=== PATIENT | male | born 1960 | race Caucasian/White ===

== ENCOUNTER 2017-11-13 10:10 | Day surgery (SDC) | payer OTHER ==
[~2017-11-13] VITALS: Ht 180.3 cm; Wt 96.9 kg
[~2017-11-13 10:10] MED LIST: ALLO300 PO; BENA40TA PO; PRED20 PO
[2017-11-13] MEDS ORDERED: IOHEXOL 350 MG/ML 50 ML BTL (for Cath Lab) OTHER ONE (10:11)
[2017-11-13 10:38] VITALS: BP 175/115; PULSE 88; RESP 20; TEMP 98.2; O2SAT 97
[2017-11-13] MEDS ORDERED: PLAV75TA29 PO (10:42)
[2017-11-13] MEDS ORDERED: METO25TA3 PO (10:42)
[2017-11-13] MEDS ORDERED: ATOR40TA16 PO (10:42)
[2017-11-13] MEDS ORDERED: VITA250T3 PO (10:42)
[2017-11-13] MEDS ORDERED: BENA40TA PO (10:42)
[2017-11-13] MEDS ORDERED: ALLO300T2 PO (10:42)
[2017-11-13] MEDS ORDERED: NITR1SUB3 SL (10:42)
[2017-11-13] MEDS ORDERED: ECASA81 PO (10:42)
[2017-11-13] MEDS ORDERED: SODIUM CHLOR 0.9% 1000 ML INJ 1,000 ML IV SCH (11:15)
[2017-11-13] MEDS ORDERED: HEPARIN-NS/PF FLUSH BAG 1,000 ML IV FLUSH ONE (12:11)
[2017-11-13] MEDS ORDERED: NITROGLYCERIN INJ 5 ML ONE (12:12)
[2017-11-13] MEDS ORDERED: HEPARIN SODIUM - IV 10,000 UNITS/10 ML VIAL ONE (12:12)
[2017-11-13] MEDS ORDERED: MIDAZOLAM HCL 2 MG/2 ML VIAL ONE ×2 (12:12→12:39)
[2017-11-13] MEDS ORDERED: RANO500 PO (12:55)
[2017-11-13] MEDS ORDERED: BACITRACIN OINT 0.9 GM PKT TOP ONE (13:00)
[2017-11-13] MEDS ORDERED: MISC INFORMATION XX ONE (13:00)
[2017-11-13] MEDS ORDERED: oxyCODONE/ACETAMINOPHEN 5 MG/325 MG TAB PO PRN ×2 (13:00)
--- NOTE | 2017-11-13 13:07 | CATHPROC ---
[employer] HIS Report Study Information Study Number Admission Scheduled Start Study Start [id number] Nov 13 2017 10:10AM 11/13/2017 Nov 13 2017 12:10PM [place] [facility] Cardiac Catheterization Admit Source Facility Department Other [facility] - Forestry Foreman Physician and Clinical Staff Initial Magnus Reyna Technical Support 1 Software EngineerFlorence Motley,Jesus Douglass,EMMANUEL Other Lupe Euceda,RT(R) TECH2 Recorder Soila Ornelas RCIS TECH2 Scrub Elyssa Cross,RT(R) Procedures Performed Procedure Location (Site) Vessel Name Coronary Angiograms LCA Left Coronary Coronary Angiograms RCA Right Coronary L Heart Cath Equipment Time Filling Station Equipment Mechanic Description Size Mfg Part Number Used/Scraped TRANSDUCER, TRUWAVE [id number] 12:13 [employer] CANALES * Used W/STOCKCOCK *[id number] *[id number] 12:13 [employer] PACK, CCL CUSTOM * Used *[id number] 12:13 [employer] SUPPORT, ARTERIAL ADULT [id number] *[id number] Used [id number] 12:13 [employer] PACER PEN, SKIN DUAL W/ RULER * Used *[id number] 12:33 [employer] JR 5.0 DXTERITY CATHETER fr 5 [id number] Used BAND, RADIAL COMPRESSION TR [id number] 12:54 [employer] 24CM Used SHORT 24 *[id number] SHEATH, FR6 RADIAL PRELUDE 12:13 [employer] FR 6 [id number] Used EASE 11CM [id number] 12:13 [employer] WIRE, EXCHANGE 260CM 3MMJ 260CM Used *[id number] 12:13 [employer] OMNIPAQUE, 350 MG, 150ML 150ML [id number] Used [id number] 12:13 [place] BLANKET,WARM AIR CCL * Used *[id number] Equipment Model, Serial, Lot Number and Expiration Data Description Model Number Serial Number Lot Number Expiration Date JR 5.0 DXTERITY CATHETER [id number] 01-25-2020 History: Current Medications Medication Dosage/Unit Route Frequency Last Date/Time Taken Allopurinol ASA Imdur Statins (any) NTG SL LOPRESSOR PLAVIX History: Allergies Allergy Reaction No Known Allergies History: Risk Factors Family History of Hypertension Dyslipidemia Previous CO Previous Heart Failure Premature CAD Yes Yes Yes No No Prior Valve Prior PCI Prior PCIDate Prior CABG Surgery No Yes 05/16/2017 No Cerebrovascular Peripheral Artery Chronic Lung On Dialysis Diabetes Disease Disease Disease No No No No No History: Stress Tests Stress or Imaging Studies Performed Yes Standard Exercise Stress Test No Stress Echo No Stress Test SPECT Stress Test SPECT Result Stress Test SPECT Ischemia Risk/Extent Yes Positive Intermediate Stress Test CMR No Cardiac CTA Coronary Calcium Score No No History: Other Current Smoker Method Packs a Day Years Used Pack Years Yes Cigarettes 08 16 25 Labs Hgb (g/dl) Hct (%) WBC (l/cumm) Platelets (thousands) 11.60-17.00 35.00-51.00 4.00-11.00 150.00-450.00 15.0 46 4.9 192 Glucose (mg/dl) BUN (mg/dl) Creatinine (mg/dl) BUN:Creatinine (1:x) 74.00-106.00 7.00-18.00 0.50-1.30 10.00-20.00 82 17 0.8 21.3 Na (meq/l) K (meq/l) 136.00-145.00 3.50-5.10 139 4.4 Medication Medication Total Dose (Bolus/Oral) Medication Total Dosage/Unit 1% XYLOCAINE 5 mL FENTANYL 50 mcg HEPARIN 5000 units OXYGEN 2 l/min RADIAL COCKTAIL 2 mL (Bolus) VERSED 3.5 mg Medications (Bolus/Oral) Medication Time Given Dosage/Unit Administered By Reason OXYGEN 11/13/2017 12:08:53 PM 2 l/min Florence Cantu 2 l/min OXYGEN given in lab by Florence Cantu RN via Nasal. VERSED 11/13/2017 12:20:17 PM 1 mg Mrache, Florence 1 mg VERSED given in lab by Florence Cantu RN in Left Antecubital via Peripheral IV. Ordered by Magnus Briggs. VERSED 11/13/2017 12:32:55 PM 1 mg Mrache, Florence 1 mg VERSED given in lab by Florence Cantu RN in Left Antecubital via Peripheral IV. Ordered by Magnus Briggs. VERSED 11/13/2017 12:34:30 PM 1 mg Mrache, Florence 1 mg VERSED given in lab by Florence Cantu RN in Left Antecubital via Peripheral IV. Ordered by Magnus Briggs. FENTANYL 11/13/2017 12:36:54 PM 25 mcg Florence Cantu 25 mcg FENTANYL given in lab by Florence Cantu RN in Left Antecubital via Peripheral IV. Ordered Magnus Zimmerman. FENTANYL 11/13/2017 12:39:00 PM 25 mcg Florence Cantu 25 mcg FENTANYL given in lab by Florence Cantu RN in Left Antecubital via Peripheral IV. Ordered Magnus Zimmerman. 1% XYLOCAINE 11/13/2017 12:39:21 PM 5 mL Magnus Landrum 5 mL 1% XYLOCAINE given in lab by Magnus Landrum in Right Radial via Subcutaneous. Ordered by Magnus Landrum. VERSED 11/13/2017 12:41:49 PM 0.5 mg Florence Cantu 0.5 mg VERSED given in lab by Florence Cantu RN in Left Antecubital via Peripheral IV. Ordered by Magnus Landrum. HEPARIN 11/13/2017 12:42:36 PM 5000 units Florence Cantu 5000 units HEPARIN given in lab by Florence Cantu RN in Left Antecubital via Peripheral IV. Ordere d by Magnus Landrum. Ntg 200mcg Verapamil 2.5mg Heparin RADIAL COCKTAIL 11/13/2017 12:42:41 PM 2 mL (Bolus) Magnus Landrum 2000U RADIAL COCKTAIL given in lab by Magnus Landrum in Right Radial via Radial. Using [Solution Name]. Ord ered by Magnus Landrum. Reason: Ntg 200mcg. Medication (Drip) Medication Time Given Dosage/Unit Concentration/Unit Diluent (ml) Solution IV Solutions 11/13/2017 12:08:33 PM 0 mL (IV) 500 NaCl .9 Patient arrived on IV Solutions in Left Antecubital via Peripheral IV. Pump/Drip Flow = 20 ml/hr usin g NaCl .9. Initial Case Assessment Cardiovascular HR Rhythm NIBP Chest Pain 81 sr 154/110 0 Circulatory - Right Pulses Dorsalis Pedis Femoral Radial 1 2 2 Scale (0,1,2,3,4,d) Circulatory - Left Pulses Dorsalis Pedis Femoral Radial 1 2 Scale (0,1,2,3,4,d) Neurological State Oriented to time-place- Alert Moves all extremities person Respiration - General Respiration Rate SpO2 (%) (B/min) 10 99 Final Case Assessment Cardiovascular HR Rhythm NIBP Chest Pain 71 sr 119/85 0 Circulatory - Right Pulses Dorsalis Pedis Femoral Radial 1 2 2 Scale (0,1,2,3,4,d) Circulatory - Left Pulses Dorsalis Pedis Femoral Radial 1 2 Scale (0,1,2,3,4,d) Neurological State Oriented to time-place- Alert Moves all extremities person Respiration - General Respiration Rate SpO2 (%) O2 (lpm) (B/min) 20 97 2 Chronological Log Time Study Chronological Log 12:07:21 Patient arrived via Bed. 12:07:22 Patient Name, D.O.B, / Armband Verified By R.N. 12:08:24 Pre-op and post- op instructions given; patient acknowledges understanding of instructions. 12:08:33 Patient arrived on IV Solutions in Left Antecubital via Peripheral IV. Pump/Drip Flow = 20 ml/hr using NaCl .9. 12:08:53 2 l/min OXYGEN given in lab by Florence Cantu RN via Nasal. 12:10:25 Verbal Stimulation=2 Physical Stimulation=2 Airway=2 Respiration=2 TOTAL=8. (0=absent, 1=li mited, 2=present) 12:13:23 Consent signed by the physician and the patient and verified by the Forestry Foreman staff. 12:13:26 Presedation assessment performed by Forestry Foreman RN. 12:13:28 Allens test performed on the left radial and ulnar artery. 12:13:29 Patient has been NPO for More than 6Hrs. 12:13:30 Skin Breakdown-none 12:13:31 Lawson Prominences Protected 12:13:32 A # 20 IV was noted in the Antecubital (left). Grade = patent 12:13:35 History and physical on the chart or being dictated. Vitals capture started with the following parameters, Patient=Adult, Interval=5 min, Initial Pr kbxmuf=021 mmHg, 12:13:43 Deflation Rate=5 mmHg, Cuff placed on Right Ankle 12:14:21 HR=83 bpm, SNFA=283/110 mmhg, SpO2=98.0 %, Resp=12 B/min Assessment: Initial Case, HR=81 BPM, Rhythm=sr, FUSU=971/110 mmhg, Chest Pain=0 Right Pulses: Bud Ped=1, Femoral=2, Radial=2 12:17:48 Left Pulses: Bud Ped=1, Femoral=2 Neurological: State=Alert, Ox3, MATIAS Respiration: Resp=10 B/min, SpO2=99 % 12:19:22 HR=83 bpm, DYBD=693/103 mmhg, SpO2=98.0 %, Resp=8 B/min 12:20:17 1 mg VERSED given in lab by Florence Cantu RN in Left Antecubital via Peripheral IV. Ord ered by Magnus Landrum. 12:22:56 Right groin and right radial prepped with 2% chlorhexidine, and draped after a 3 min. waiti ng time. 12:24:23 HR=76 bpm, VLFM=367/96 mmhg, IjO9=702.0 %, Resp=10 B/min 12:29:22 HR=75 bpm, IELS=206/99 mmhg, SpO2=98.0 %, Resp=6 B/min 12:29:41 MD paged 12:30:25 Pressure channel 1 zeroed. 12:31:53 Reference ECG taken 12:32:07 MD arrived. 12:32:55 1 mg VERSED given in lab by Florence Cantu RN in Left Antecubital via Peripheral IV. Ord ered by Magnus Landrum. 12:34:21 HR=91 bpm, COBK=826/102 mmhg, SpO2=98.0 %, Resp=9 B/min, Pancho=10 12:34:30 1 mg VERSED given in lab by Florence Cantu RN in Left Antecubital via Peripheral IV. Ord ered by Magnus Landrum. 25 mcg FENTANYL given in lab by Florence Cantu RN in Left Antecubital via Peripheral IV. Ord ered by Diallo, 12:36:54 Magnus. Time Out. Correct patient, correct procedure, correct physician, power injector loaded, or not loaded with contrast with 12:38:41 surgical team present. Time Out Concurred by and individual staff in procedure. 25 mcg FENTANYL given in lab by Florence Cantu RN in Left Antecubital via Peripheral IV. Ord ered by Diallo, 12:39:00 Magnus. 12:39:20 Case Start 12:39:21 5 mL 1% XYLOCAINE given in lab by Magnus Landrum in Right Radial via Subcutaneous. Ordered by Magnus Landrum. 12:40:20 HR=81 bpm, YUJA=995/103 mmhg, SpO2=99.0 %, Resp=14 B/min, Pederson=1, Comment=Pt moving aroun d 12:41:04 Access site was Radial Artery. right A SHEATH, FR6 RADIAL PRELUDE EASE 11CM FR 6 was advanced into the Radial (right) using the Perc utaneous :: technique. 12::49 0.5 mg VERSED given in lab by Florence Cantu, EMMANUEL in Left Antecubital via Peripheral IV. O rdered by Magnus Landrum. 5000 units HEPARIN given in lab by Florence Cantu, EMMANUEL in Left Antecubital via Peripheral IV. Ordered by Diallo 12:42:36 Magnus. RADIAL COCKTAIL given in lab by Magnus Landrum in Right Radial via Radial. Using [Solution Name ]. Ordered by Diallo : Magnus. Reason: Ntg 200mcg. Recorded Pressure: Ao, HR=79, Condition=Condition 1 12:42:44 (Aorta) Ao 123/83/102 A JR 5.0 DXTERITY CATHETER fr 5 was advanced over a wire. OMNIPAQUE, 350 MG, 150ML 150ML was us ed for :43:38 injections. 12::49 The RCA was injected and visualized at various angles. OMNIPAQUE, 350 MG, 150ML 150ML used . After removing the current catheter a JL 3.5 INFINITI CATHETER FR 5 was advanced over a WIRE, E XCHANGE 260CM 12:44:00 3MMJ 260CM. 12:44:24 HR=80 bpm, GMMG=710/84 mmhg, SpO2=92.0 %, Resp=16 B/min 12:45:25 The LCA was injected and visualized at various angles. OMNIPAQUE, 350 MG, 150ML 150ML used . 12:47:32 Catheter was removed 12:47:37 Case End 12:49:20 HR=78 bpm, FKLT=015/83 mmhg, SpO2=94.0 %, Resp=19 B/min Radial Compression Device Used. 13 mLs of air placed in BAND, RADIAL COMPRESSION TR SHORT 24 24 CM. Affected 12:52:53 hand 97 % O2 saturation. Assessment: Final Case, HR=71 BPM, Rhythm=sr, EYVC=361/85 mmhg, Chest Pain=0 Right Pulses: Bud Ped=1, Femoral=2, Radial=2 12:53:49 Left Pulses: Bud Ped=1, Femoral=2 Neurological: State=Alert, Ox3, MATIAS Respiration: Resp=20 B/min, SpO2=97 %, O2=2 lpm 12:54:22 KTHW=694/85 mmhg, SpO2=97.0 % 12:54:36 Vitals capture stopped. 12:55:39 No case complications noted. 12:55:40 Cine recording checked. 12:55:42 Bedside Report will be given. 12:55:47 Patient moved to bed 12:55:57 A Left Heart Cath was performed. 12:58:25 Patient transported to DOCU. End Study - Contrast Media Used In Study Contrast Total Opened (mL) Total Used (mL) Total Wasted (mL) Omnipaque 50 50 0 End Study - Maximum Contrast Load Max Contrast Load (mL) 605.7 End Study - Radiation Exposure Fluoro Time (minutes) 1.0 End Study - Sheaths Sheaths Pulled By Sheath Hold Time (min) Elyssa Cross End Study - Patient Disposition Complications Transferred To Interventional Outcome No Telemetry Bed No attempt made
--- NOTE | 2017-11-13 13:14 | MA ---
cc: Magnus Landrum MD DATE: 11/13/2017 INDICATION: Unstable angina, abnormal stress test, intermediate risk. METHOD: Risks, benefits and alternatives discussed with the patient. The patient understood and consented to the procedure. PROCEDURE: The patient was brought to catheterization lab, placed on the catheterization table. The right wrist was prepped and draped in sterile fashion. The right wrist was anesthetized with 2% lidocaine. The right radial artery was cannulated and a 6-American 7 cm sheath was placed without difficulty. PROCEDURE PERFORMED: 1. Fluoroscopy with interpretation. 2. Coronary angiography. HEMODYNAMICS: Initial aortic hemodynamics 123/83 mmHg. CORONARY ANGIOGRAPHY: 1. Left main coronary has 30% proximal stenosis. 2. Left anterior descending coronary has a stent present in the proximal to mid segment, has mild luminal irregularities in the diagonal branches and mid to distal LAD, but no high-grade stenosis. There is a small first diagonal branch with mild luminal irregularities. 3. Left circumflex gives rise to several smaller obtuse marginal branches, which are tortuous, but only has mild luminal irregularities. 4. Right coronary artery is occluded in the midsegment, but well collateralized both from wjys-og-xvaio and rdlyl-jc-ezfrf collateralization. Acute marginal branch bifurcates prior to the occlusion. CONCLUSIONS: 1. 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 2. Widely patent left anterior descending coronary stent. PLAN: The patient's symptoms are from the right coronary occlusion. He is intolerant to long-acting nitrates secondary to headache. We will start him on Ranexa 500 mg b.i.d. I may also discuss with potentially trying Isosorbide again for a longer period of time to see if he can build a tolerance. Given the collateralization, it is not worth necessarily going after this occlusion on the right side at this point. In addition, it will be a difficult intervention given that the bifurcation of acute marginal branch occurs right at the level of the occlusion. We will continue with the current medical management approach. Anxiety may also be playing a factor. Magnus Landrum MD MILAGRO/TL , 12:58 PM , 01:13 PM
== END 2017-11-13 16:47 | disposition home or self-care (01) ==
LOC: HDIC 10:10 → HDOC 10:10 → HDIC 10:11 → HDOC 16:47
PROVIDERS: ATTEND Internal Medicine
DX: I25.110 Atherosclerotic heart disease of native coronary artery with unstable angina pectoris (principal); I10 Essential (primary) hypertension; F17.200 Nicotine dependence, unspecified, uncomplicated
CPT/HCPCS: 86850; 86900; 86901; 93454; 99152; 99153; C1769; C1893; J1644; J2250; J3010; J7030; Q9967